=== PATIENT | male | born 1990 | race African-American/Black ===

== ENCOUNTER 2024-06-12 16:28 | Emergency (ER) | payer OTHER ==
[~2024-06-12] VITALS: Ht 162.6 cm; Wt 64.0 kg
[2024-06-12 16:33] VITALS: O2SAT 100
[2024-06-12] MEDS ORDERED: CLIN-194 MT (17:53)
[2024-06-12 21:17] VITALS: BP 138/87; PULSE 88; RESP 16; TEMP 36.8; O2SAT 100
== END 2024-06-12 21:24 | disposition home or self-care (01) ==
LOC: ER 16:28
DX: S91.031A Puncture wound without foreign body, right ankle, initial encounter (principal); Z00.00 Encounter for general adult medical examination without abnormal findings; Z88.0 Allergy status to penicillin; W34.00XA Accidental discharge from unspecified firearms or gun, initial encounter; Y93.89 Activity, other specified; Y92.89 Other specified places as the place of occurrence of the external cause; Y99.8 Other external cause status
CPT/HCPCS: 99283